=== PATIENT | male | born 1955 | race Caucasian/White ===

== ENCOUNTER 2019-07-10 14:12 | Emergency (ER) | payer OTHER, SELFPAY ==
[2019-07-10 14:13] VITALS: BP 104/84; PULSE 88; RESP 16; TEMP 36.6; O2SAT 98; BMI 19.3
--- NOTE | 2019-07-10 14:30 | ED.VISSUMM ---
- ER Visit Summary Date of Service: 07/10/19 Chief Complaint: Back pain History of Present Illness: The patient is a [address] Garcia. He has a history of chronic back pain. He reports that last injection was in September 2016. His pain is typically a 2 out of 10 in severity. Ports the pain is much worse today. Says sharp pain over his lower back that is 10 out of 10 in severity. It is worsened by movement or sitting. Is relieved by nothing. States that it radiates to his left leg occasionally when he puts pressure on his left leg. He denies any numbness or weakness. No groin numbness. No problems with his bowels or his bladder. Patient denies any recent trauma. No fall, MVA, or change in activity. Patient denies any red flags. No fever, chills, IV drug abuse. Physical Examination: Vitals: Stable. Afebrile. General: A&O x 3. NAD. Cardiovascular exam: Regular rate and rhythm, no murmur, rub or gallop. Respiratory exam: Clear to auscultation bilaterally. No wheezes or stridor. Abdominal exam: Soft, nontender, nondistended, normal bowel sounds. No peritoneal signs. Back: Diffuse moderate tenderness to palpation over the lumbar spine and the paraspinous musculature in the lumbar region. No point tenderness. Negative straight leg bilaterally. 5/5 DF, PF, EHL bilaterally. Normal sensation to light touch throughout. Extremity: No clubbing, cyanosis, or edema. Emergency Department Course and Treatment: An [facility] report was obtained which was negative. Patient was given Toradol, Norflex, and morphine IM. He is resting more comfortably. Treatment Plan: Patient will be discharged with Percocet, Norflex, naproxen. Instructed to follow-up with his primary care physician and/or back specialist in 3 to 5 days if not improving. Return to the emergency department for any worsening symptoms. Disposition: To home in improved and stable condition. Impression: 1. Acute on chronic back pain. This note was generated with [employer] software. It may contain incorrect words, spelling, and punctuation that were not noted in review of the chart prior to signing ED Disposition - Plan for ED Patient: Instructions: BACK PAIN (Acute or Chronic) Prescriptions: Naproxen [Naprosyn] 500 mg PO BID #14 tablet Orphenadrine [Norflex ER] 100 mg PO BID #14 tablet Oxycodone HCl/Acetaminophen [Percocet 5/325] 1 tablet PO Q6H PRN PRN 5 Days #20 tablet PRN Reason: Pain Score 6-10/10 Referrals: Yaneli Garcia MD [Primary Care Provider] - 3-5 Days if not improving
[2019-07-10] MEDS: Ketorolac 60 MG/2 ML Vial IM (14:43)
[2019-07-10] MEDS: Orphenadrine 60 MG/2 ML Ampul IM (14:44)
[2019-07-10] MEDS: morphine 8 MG/ML Syringe IM (14:44)
== END 2019-07-10 15:12 | disposition home or self-care (01) ==
LOC: ED 15:00
PROVIDERS: Emergency Provider Emergency Medicine; PCP Internal Medicine
DX: M54.9 Dorsalgia, unspecified (principal); G89.29 Other chronic pain; I10 Essential (primary) hypertension; E03.9 Hypothyroidism, unspecified; N40.0 Benign prostatic hyperplasia without lower urinary tract symptoms; Z72.0 Tobacco use; Z79.899 Other long term (current) drug therapy
CPT/HCPCS: 96372; 99282

== ENCOUNTER 2023-02-03 15:06 | Emergency (ER) | payer MEDICARE, OTHER, SELFPAY ==
[2023-02-03 15:08] VITALS: BP 107/72; PULSE 64; RESP 11; TEMP 36.6; O2SAT 96; BMI 21.5
--- NOTE | 2023-02-03 15:21 | EKG12_ITS ---
Test Reason : DIZZY/SYNCOPE Blood Pressure : / mmHG Vent. Rate : 060 BPM Atrial Rate : 060 BPM P-R Int : 138 ms QRS Dur : 086 ms QT Int : 430 ms P-R-T Axes : 082 067 078 degrees QTc Int : 430 ms Normal sinus rhythm Septal infarct , age undetermined Abnormal ECG Confirmed by LILIANA ROBBINS, RADHA ([id number]), staff editor KATIA ORTA ([id number]) on 02/06/2023 1:51:14 PM Referred By: Confirmed By:RADHA FORD MD
--- NOTE | 2023-02-03 15:25 | EX.ED.DYSGE1 ---
HPI History of Present Illness Chief Complaint: Dizziness Detail of Chief Complaint: Dizziness which was defined as lightheadedness Informant: patient Onset/Context/Timing Onset: Hours Context: Sudden Onset Timing: Intermittent Quality: Flash of light, nausea, diaphoresis, pallor and near syncope Location: Car waiting for her granddaughter to be dismissed from school Current Severity: Mild Maximum Severity: Severe Worsened by: Nothing Relieved by: Nothing Associated Symptoms Associated Symptoms: No other symptoms Narrative Narrative: Patient is a 68-year-old male with history of hypertension, hypothyroidism, GERD and COPD. He is a smoker of 1/3 pack/day. 5 years ago he smoked greater than 1 pack/day. He denies fever, chills night sweats. He denies weight gain or weight loss. He denies headache. He denied double vision. He states he had a flashing light when his symptoms started. He denies trouble with speech or swallowing. He denied chest discomfort of any type. He denies shortness of breath. He did report nausea without vomiting. He has not had black or maroon stool today. He denies urinary symptoms. He denies rash. He denies history of prior episode. He denies history of PE nor does he have any risk factors. Prior similar symptoms: No Recent Illness/Hospitalization: No [facility] Medical History COPD (chronic obstructive pulmonary disease) Hypothyroidism Home Medications orphenadrine citrate 100 mg tablet,extended release 100 mg PO BID #14 tabs 07/10/19 [Rx Last Taken Unknown] albuterol sulfate 2.5 mg/3 mL (0.083 %) solution for nebulization mg 02/03/23 [History Last Taken Unknown] alfuzosin 10 mg tablet,extended release 24 hr 10 mg PO DAILY 02/03/23 [History Last Taken Unknown] ipratropium 20 mcg-albuterol 100 mcg/actuation mist for inhalation (Combivent Respimat) 1 puff inhalation BID 02/03/23 [History Last Taken Unknown] levothyroxine 88 mcg tablet 88 mcg PO DAILY 02/03/23 [History Last Taken Unknown] lisinopril 20 mg tablet 20 mg PO DAILY 02/03/23 [History Last Taken Unknown] omeprazole 20 mg capsule,delayed release 20 mg PO DAILY 02/03/23 [History Last Taken Unknown] Allergy/AdvReac Type Severity Reaction Status Date / Time No Known Allergies Allergy Verified 02/21/17 16:17 Social History Smoking Status: Current every day smoker tobacco type: cigarettes ROS ROS ED Constitutional Constitutional ED: Denies chills, fever(s), subjective, sweats or weight loss Eyes Eyes: Denies blurry vision, change in vision or diplopia ENT ENT ED: Denies ear pain, rhinorrhea or sore throat Cardiovascular Cardiovascular: Denies chest pain, orthopnea, palpitations, paroxysmal nocturnal dyspnea or racing heartbeat Respiratory/Chest Respiratory/Chest: Denies cough, dyspnea, dyspnea on exertion, orthopnea or paroxysmal nocturnal dyspnea Gastrointestinal Gastrointestinal: Reports nausea; Denies abdominal pain or vomiting Genitourinary Genitourinary ED: Denies dysuria, hematuria or urinary frequency Musculoskeletal Musculoskeletal: Denies back pain or neck pain Integumentary Denies rash Neurologic Neurologic: Reports weakness; Denies headache(s) or paresthesias Psychiatric Psychiatric: Denies anxiety Endocrine Endocrinology: Denies cold intolerance or heat intolerance Hematologic/Lymphatic Hematologic/Lymphatic: Denies easy bleeding or easy bruising EXAM Physical Exam Const Vital Signs: 02/03/23 15:08 02/03/23 15:11 02/03/23 15:28 Temperature 97.8 F Temperature Source Temporal Pulse Rate 64 Pulse Rate [Lying] 61 Pulse Rate [Sitting (for 1 minute prior to obtaining)] 63 Pulse Rate [Standing (for 1 minute prior to obtaining)] 82 Respiratory Rate 11 L Respiratory Effort Normal Non-Labored Blood Pressure 107/72 Blood Pressure [Lying] 95/65 Blood Pressure [Sitting (for 1 minute prior to obtaining)] 110/70 Blood Pressure [Standing (for 1 minute prior to obtaining)] 99/68 Blood Pressure Mean 83 Blood Pressure Mean [Lying] 75 Blood Pressure Mean [Sitting (for 1 minute prior to obtaining)] 83 Blood Pressure Mean [Standing (for 1 minute prior to obtaining)] 78 Pulse Ox 96 Oxygen Delivery Method Room Air Positive well nourished and well developed General Appearance ED: well developed and NAD; Negative for cyanotic, diaphoretic or pallor HEENT Reports moist mucous membranes Eyes PERRL and EOMs intact bilaterally General Eye ED: Negative for pale conjunctiva or scleral icterus Neck no lymphadenopathy, supple and no JVD Neck Narrative: There are no meningeal findings. Chest Wall inspection of chest normal and palpation of chest normal Resp normal respiratory effort and clear to auscultation bilaterally Cardio regular rate, regular rhythm, S1 normal heart sound, S2 normal heart sound and no murmurs GI normal to inspection, nondistended, normoactive bowel sounds, non-tender, non-distended and no masses; Negative for hepatosplenomegaly GI Narrative: There is no abdominal bruit. There is no palpable pulse no mass. Palpation: soft Back/Spine no CVA tenderness Extremity normal to inspection Extremity Narrative: There is no asymmetry, swelling, discoloration, leg vein distention, palpable cords or tenderness along the distribution of the deep venous system. General Extremety ED: Negative for edema or tenderness General Extremity: Negative for edema Neuro oriented x3, CN's II-XII intact bilaterally and no sensory deficits noted Neuro Narrative: There is no dysmetria. There is no clonus or Babinski sign. DTRs are symmetric, 1+. Sensorium / Orientation: alert Motor Exam: strength 5/5 throughout Psych mental status grossly normal Skin no rashes or lesions noted, no wounds and skin turgor normal General Skin Exam: Negative for jaundice or pallor MDM MDM MDM Narrative Medical decision making narrative: Patient's symptoms are consistent with a vasovagal response. We will obtain a CBC to assess for anemia. BMP to assess renal function as well as BUN to creatinine ratio which may be up if patient has a GI bleed even though his hemoglobin may be normal. EKG was obtained to assess for any cardiac ischemia or dysrhythmia. Prior records were reviewed. History & Record Review Additional record(s) reviewed:: Prior outpatient record and Prior ED visit Lab Data Attestation: I reviewed the patient's lab results. Lab results narrative: CBC is unremarkable. Basic metabolic panel is on remarkable when compared to prior. Chloride is cellular-based 109. BUN and creatinine are elevated at 31 and 1.5 which is patient's baseline. GFR is 47.8. Labs: Laboratory Results - last 24 hr 02/03/23 15:15 WBC 9.7 RBC 4.72 Hgb 15.4 Hct 45.9 MCV 97.2 H MCH 32.6 H MCHC 33.6 RDW Std Deviation 44.8 H RDW Coeff of Audie 12.5 Plt Count 223 MPV 10.2 Immature Gran % (Auto) 0.400 Neut % (Auto) 66.4 Lymph % (Auto) 25.2 [place] % (Auto) 6.2 Eos % (Auto) 1.2 Baso % (Auto) 0.6 Absolute Neuts (auto) 6.4 Absolute Lymphs (auto) 2.44 Nucleated RBC % 0 Sodium 139 Potassium 3.4 L Chloride 109 H Carbon Dioxide 24.0 Anion Gap 6 BUN 31 H Creatinine 1.55 H Estim Creat Clear Calc 47.81 Est GFR (MDRD) Af Amer 58 L Est GFR (MDRD) Non-Af 48 L BUN/Creatinine Ratio 20.0 Glucose 83 Calcium 8.7 Treatment and Re-Evaluation :: Patient and his spouse were informed of his test results. He was informed that he had a vasovagal near syncopal episode. He was discharged home in stable condition. Discharge Plan Triage Chief Complaint: Dizziness Other Complaint: Hypotension ED Provider: Jack Schmidt Dx/Rx/DC Orders Clinical Impression: History of COPD, Vasovagal near syncope, History of hypertension, History of hypothyroidism Instructions: ED Near-Fainting- Vagal Reaction Prescriptions: No Action orphenadrine citrate 100 MG tablet 100 mg PO BID Qty: 14 0RF lisinopril 20 mg tablet 20 mg PO DAILY albuterol sulfate 2.5 mg /3 mL (0.083 %) solution for nebulization Patient Comments: TAKE 1 NEBULIZER (INHALATION) EVERY 4-6 HOURS NEEDED FOR 10 DAYS alfuzosin 10 mg tablet extended release 24 hr 10 mg PO DAILY levothyroxine 88 mcg tablet 88 mcg PO DAILY Combivent Respimat 20-100 mcg/actuation mist 1 puff INHALATION BID omeprazole 20 mg capsule,delayed release(DR/EC) 20 mg PO DAILY Primary Care Provider: Yaneli Garcia Referrals: Yaneli Garcia MD [Primary Care Provider] - 3-5 Days if not improving Disposition Disposition: Home, Self Care
[2023-02-03 15:28] VITALS: BP 110/70; BP 95/65; BP 99/68; PULSE 61; PULSE 63; PULSE 82
[2023-02-03 15:32] LABS: Absolute Lymphocyte Count 2.44 X10^3/uL (0.83-4.51); Absolute Neutrophil Count 6.4 X10^3/uL (2.0-7.7); Basophil# 0.06 X10^3/uL; Basophil% 0.6 % (0-1); Eosinophil# 0.12 X10^3/uL; Eosinophils% 1.2 % (0-5); Hematocrit 45.9 % (40-54); Hemoglobin 15.4 g/dL (13.0-16.5); Lymphocyte # 2.44 X10^3/ul (0.83-4.51); Lymphocyte % 25.2 % (19-41); Mean Corp Hgb Conc 33.6 g/dL (32-36); Mean Corpuscular Hgb 32.6 pg (27.0-32.0); Mean Corpuscular Volume 97.2 fL (80-94); Mean Platelet Vol. 10.2 fl (6.2-12.0); Monocyte% 6.2 % (0-10); NRBC Flagged by Analyzer 0 % (0-5); Neutrophil # 6.42 X10^3/uL (2.7-7.7); Neutrophil % 66.4 % (47-70); Platelet Count 223 K/mm3 (150-450); RBC Distribution Width CV 12.5 % (11.6-14.6); RBC Distribution Width SD 44.8 fl (35.1-43.9); Red Blood Count 4.72 M/mm3 (4.6-6.2); White Blood Count 9.7 K/mm3 (4.4-11.0)
[2023-02-03 15:47] LABS: Anion Gap 6 (5-15); BUN 31 mg/dL (7-18); Calcium,Total 8.7 mg/dL (8.5-10.1); Chloride 109 mmol/L (98-107); Creatinine, Serum 1.55 mg/dL (0.70-1.30); EST Glomerular Filtration Rate 48 mL/min (>60); Est Glom Filt Rate - Afr Amer 58 mL/min (>60); Estimated Creatinine Clearance 47.81 ml/min; Glucose 83 mg/dL (74-106); Potassium 3.4 mmol/L (3.5-5.1); Sodium Level 139 mmol/L (136-145)
[2023-02-03 16:08] VITALS: BP 118/68; PULSE 64; RESP 10; O2SAT 99
[2023-02-03 16:17] VITALS: BP 102/64; PULSE 71
== END 2023-02-03 16:17 | disposition home or self-care (01) ==
PROVIDERS: Emergency Provider Emergency Medicine; PCP Internal Medicine; Visit Provider Emergency Medicine
DX: R55 Syncope and collapse (principal); J44.9 Chronic obstructive pulmonary disease, unspecified; R11.0 Nausea; I95.9 Hypotension, unspecified; I10 Essential (primary) hypertension; F17.210 Nicotine dependence, cigarettes, uncomplicated; R42 Dizziness and giddiness; E03.9 Hypothyroidism, unspecified; K21.9 Gastro-esophageal reflux disease without esophagitis; Z79.899 Other long term (current) drug therapy; Z79.890 Hormone replacement therapy
CPT/HCPCS: 80048; 85025; 93005; 99285